=== PATIENT | male | born 1990 | race Caucasian/White ===

== ENCOUNTER 2019-08-24 14:54 | Emergency (ER) | payer MEDICAID ==
[~2019-08-24] VITALS: Ht 177.8 cm; Wt 72.7 kg
[2019-08-24 15:17] LABS: BASOPHILS % (AUTO) 0.3 % (0-1); EOSINOPHILS % (AUTO) 0.4 % (0-6); HEMOGLOBIN 17.6 g/dl (14.0-17.9); LYMPHOCYTES # (AUTO) 2.8 X10'3 (1.1-4.8); MEAN CORPUSCULAR HGB CONC 33.5 g/dL (33.0-36.5); MONOCYTES # (AUTO) 0.9 X10'3 (0-0.9); NEUTROPHILS # (AUTO) 7.4 X10'3 (1.8-7.7)
[2019-08-24 15:18] LABS: HEMATOCRIT 52.5 % (42.0-52.0); LYMPHOCYTES % (AUTO) 25.1 % (21-51); MEAN CORPUSCULAR HEMOGLOBIN 32.5 PG (27.0-31.0); MEAN CORPUSCULAR VOLUME 97.2 FL (78-98); MEAN PLATELET VOLUME 8.2 FL (7.4-10.4); MONOCYTES % (AUTO) 7.8 % (2-12); NEUTROPHILS % (AUTO) 66.4 % (42-75); PLATELET COUNT 262 X10'3 (140-440); RED BLOOD COUNT 5.41 X10'6 (4.70-6.10); RED CELL DISTRIBUTION WIDTH 13.1 % (11.5-14.5); WHITE BLOOD COUNT 11.1 X10'3 (4.5-11.0)
[2019-08-24 15:26] LABS: ALANINE AMINOTRANSFERASE 302 U/L (12-78); ALBUMIN 4.6 G/DL (3.4-5.0); ALKALINE PHOSPHATASE 80 IU/L (46-116); ANION GAP 26 (8-16); ASPARTATE AMINO TRANSFERASE 47 U/L (10-37); BILIRUBIN,TOTAL 2.8 MG/DL (0.1-1.0); BLOOD UREA NITROGEN 22 MG/DL (7-18); BUN/CREATININE RATIO 15.1 (5.4-32.0); CALCIUM 9.7 MG/DL (8.5-10.1); CHLORIDE 98 MMOL/L (99-107); CREATININE 1.46 MG/DL (0.60-1.10); GLUCOSE 121 MG/DL (70-104); POTASSIUM 3.2 MMOL/L (3.5-5.1); SODIUM 141 MMOL/L (135-145); TOTAL CARBON DIOXIDE 17.3 MMOL/L (24-32); eGFR 57 ML/MIN
[2019-08-24 15:30] VITALS: BP 172/86
[2019-08-24 17:01] LABS: CLARITY,URINE CLEAR (Clear); COLOR,URINE YELLOW (Yellow); GLUCOSE, URINE NEGATIVE (Neg); KETONES,URINE 40 mg/dl (Neg); LEUKOCYTE ESTERASE ,URINE NEGATIVE (Neg); NITRITES, URINE NEGATIVE (Neg); OCCULT BLOOD,URINE NEGATIVE (Neg); PH,URINE 5.5 (4.8-8.0); PROTEIN,URINE 30 mg/dl (Neg)
[2019-08-24] MEDS ORDERED: KEP500T PO (17:02)
[2019-08-24 17:06] LABS: UA COLLECTION TYPE VOIDED
[2019-08-24 17:11] LABS: MUCUS STRANDS MODERATE /LPF (Neg); SQUAMOUS EPITHELIAL CELL,UR FEW /LPF (FEW)
[2019-08-24 17:13] LABS: BACTERIA,URINE FEW /HPF (Neg); RBC,URINE 0-2 /HPF (0-2); SPERM MODERATE /HPF (NEGATIVE); WBC,URINE 0-4 /HPF (0-4)
[2019-08-24] MEDS ORDERED: levetiracetam inj 1,000 MG in normal saline 100ml IV soln 90 ML IV SCH (20:00)
== END 2019-08-24 17:33 | disposition home or self-care (01) ==
LOC: ER 14:56 → EDBD 14:56 → ER 17:33
DX: G40.909 Epilepsy, unspecified, not intractable, without status epilepticus (principal); Z79.899 Other long term (current) drug therapy
CPT/HCPCS: 36415; 70450; 71045; 80053; 81001; 85025; 96365; 96366; 99284; J1953

== ENCOUNTER 2019-10-01 11:40 | Outpatient (CLI) | payer MEDICAID ==
[~2019-10-01 11:40] MED LIST: KEP500T PO
== END 2019-10-01 23:59 | disposition home or self-care (01) ==
LOC: RAD 11:40
PROVIDERS: ATTEND Registered Nurse
DX: R56.9 Unspecified convulsions (principal)
CPT/HCPCS: 95816